=== PATIENT | female | born 1955 | race Caucasian/White ===

== ENCOUNTER 2019-11-30 20:08 | Emergency (ER) | payer OTHER ==
[~2019-11-30] VITALS: Ht 170.2 cm; Wt 82.1 kg
[2019-11-30] MEDS ORDERED: ZOFRAN ODT4 MG PO (22:11)
[2019-11-30 22:19] VITALS: BP 125/76
== END 2019-11-30 22:20 | disposition home or self-care (01) ==
LOC: M.ERS 20:08
DX: T40.7X5A Adverse effect of cannabis (derivatives), initial encounter (principal); Y92.89 Other specified places as the place of occurrence of the external cause

== ENCOUNTER 2021-03-23 15:50 | Emergency (ER) | payer MEDICARE, OTHER ==
[~2021-03-23] VITALS: Ht 170.2 cm; Wt 86.2 kg
[~2021-03-23 15:50] MED LIST: ZOFRAN ODT4 MG PO
[2021-03-23 15:53] VITALS: BP 143/80
--- NOTE | 2021-03-24 12:24 | EKG ---
[place] [address] ELECTROCARDIOGRAM REPORT Name: PARISH DEMPSEY Room: [facility]#: [id number] Admission: 03/23/21 Attend Phys: Discharge: 03/23/21 Date of : 57 Date of Service: 03/23/21 1556 Report #: [id number] THIS REPORT FOR: //name// [facility] ED Test Date: 2021-03-23 Test Time: 15:56:34 Pat Name: PARIHS DEMPSEY Department: Room: [facility] 1955 Requested By: Aditya Chacon Order Number: [id number] MD: Soy Carballo Measurements Intervals [place] Rate: 73 P: -1 UT: 154 QRS: -43 QRSD: 107 T: 4 QT: 388 QTc: 428 Interpretive Statements Sinus rhythm Left anterior fascicular block Probable anteroseptal infarct, old No previous ECG available for comparison Electronically Signed On 03-24-2021 12:24:42 [employer] by Soy Carballo [email or web address] <ELECTRONICALLY SIGNED> By: Deanna Carballo MD, [facility] 03/24/21 1224 1556 1556 Deanna Carballo MD, WENDI /EPI
== END 2021-03-23 18:36 | disposition left against medical advice (07) ==
LOC: M.ERS 15:50
DX: R07.89 Other chest pain (principal); Z53.21 Procedure and treatment not carried out due to patient leaving prior to being seen by health care provider